=== PATIENT | female | born 1970 | race Caucasian/White ===

== ENCOUNTER 2019-08-24 08:41 | Outpatient (CLI) | payer BC ==
--- NOTE | 2019-08-24 11:29 | MRI ---
MRI LUMBAR SPINE WITH AND WITHOUT CONTRAST: 08/24/2019 HISTORY: Lumbar radiculopathy. Back pain. COMPARISON: None. TECHNIQUE: Multiplanar, multisequence MR imaging of the lumbar spine is obtained with and without contrast. FINDINGS: Incidental note is made of cholelithiasis. On the basis of five lumbar type vertebral bodies the conu s medullaris terminates at the L1 level. T12-L1: Intervertebral disk height and signal intensity within normal limits with no central canal or neural foraminal stenosis. L1-L2: Intervertebral disk height and signal intensity within normal limits with no significant centr al canal or neural foraminal stenosis. L2-L3: Intervertebral disk height and signal intensity within normal limits with no significant centr al canal or neural foraminal stenosis. L3-L4: There is disk space narrowing with disk desiccation and mild disk bulge. No associated central canal or neural foraminal stenosis. L4-L5: Prominent bilateral facet hypertrophy and hypertrophy of the ligamentum flavum. Fluid seen wit hin bilateral facet joints which can be seen on the basis of instability. Flexion/extension imaging o f the lumbar spine may be beneficial. Intervertebral disk height and signal intensity are within norm al limits. There is a rim enhancing lesion emanating from the medial aspect of the facet joint on the right at L 4-L5, most consistent with a prominent synovial cyst. This measures approximately 1 cm in AP dimensio n and 1.4 cm in craniocaudal dimension. There is severe associated central canal stenosis/right later al recess stenosis. There is mild right neural foraminal stenosis. L5-S1: There is mild bilateral facet hypertrophy. Intervertebral disk height and signal intensity wit hin normal limits with no significant central canal or neural foraminal stenosis. There are questiona ble L5 pars defects bilaterally. Assessment for pars defects is limited secondary to the degree of fa cet hypertrophy on this examination. The post contrast imaging demonstrates mild enhancement of the soft tissues adjacent to the right fac et joints at L4-L5 suggesting reactive inflammation. The post contrast imaging demonstrates no interv ertebral disk enhancement. Imaged retroperitoneal structures are grossly unremarkable. IMPRESSION: 1. Prominent bilateral facet disease at L4-L5 with a large right-sided synovial cyst causing severe c entral canal stenosis/right lateral recess stenosis at L4-L5. 2. Questionable bilateral L5 pars defects for which CT is suggested. 3. Cholelithiasis. POS: OFF
== END 2019-08-24 08:42 | disposition home or self-care (01) ==
LOC: SCSMRI 08:41
PROVIDERS: ATTEND Neurological Surgery
DX: M54.16 Radiculopathy, lumbar region (principal); M48.8X6 Other specified spondylopathies, lumbar region; M71.38 Other bursal cyst, other site; M48.061 Spinal stenosis, lumbar region without neurogenic claudication; K80.20 Calculus of gallbladder without cholecystitis without obstruction
CPT/HCPCS: 72158

== ENCOUNTER 2019-09-13 05:43 | Inpatient (IN) | payer BC ==
[2019-09-13] MEDS ORDERED: Fentanyl 100 MCG/2 ML VIAL ONE ×3 (06:28→08:58)
[2019-09-13] MEDS ORDERED: Sodium Chloride 0.9% 10 ML ONE (06:34)
[2019-09-13 06:56] LABS: #Basophils 0.1 thou/uL (0.0-0.2); #Eosinphils 0.2 thou/uL (0.0-0.7); #Lymphocytes 3.1 thou/uL (1.20-3.40); #Monocytes 0.5 thou/uL (0.11-0.59); #Neutrophils 6.1 thou/uL (1.40-6.50); %Basophils 0.7 % (0.0-1.0); %Eosinophils 1.8 % (0.0-10.0); %Lymphocytes 30.7 % (21.0-51.0); %Monocytes 5.4 % (0.0-10.0); %Neutrophils 61.4 % (42.0-75.0); Hemoglobin 12.1 g/dL (12.0-16.0); Mean Corpuscular HGB CONC 34.7 g/dL (32.0-36.0); Mean Corpuscular Hemoglobin 31.9 pg (27.0-31.0); Mean Platelet Volume 8.7 fL (7.4-10.4); Platelet Count 196 thou/uL (130-400); Red Blood Cell (RBC) Count 3.78 mill/uL (4.20-5.40)
[2019-09-13 07:47] LABS: Anion Gap 10 mmol/L (10-20); BUN (Urea Nitrogen) 14 mg/dL (7.0-18.7); Calc. Creatinine Clearance 94 mL/min (70-130); Calcium 8.9 mg/dL (7.8-10.44); Carbon Dioxide 24 mmol/L (22-29); Chloride 108 mmol/L (98-107); Estimated GFR-MDRD 83; Glucose 107 mg/dL (70-105); Potassium 4.3 mmol/L (3.5-5.1); Sodium 138 mmol/L (136-145)
--- NOTE | 2019-09-13 09:10 | OP ---
DATE OF PROCEDURE: 09/13/2019 [employer]EL CUTTER: Lizz Clark PA-C PROCEDURES PERFORMED: L4-L5 laminectomy, removal of synovial cyst right L4-L5, posterolateral arthrodesis, pedicle screw instrumentation, demineralized bone matrix, and local morselized autograft. DESCRIPTION OF PROCEDURE: The patient was brought to the operating room and intubated. She was rolled in a prone position on gel-filled chest rolls. An incision was made exposing L4-L5, and the level was confirmed by x-ray. We performed complete L5 and inferior L4 laminectomies, identified the right-sided synovial cyst and removed this without difficulty. A complete decompression bilaterally was achieved. Next, pedicle screws were placed at right L4 and right L5 using lateral fluoroscopic guidance and the position was confirmed by x-ray. The turner was secured between the screws, connected by nuts, which were final tightened. The wound was extensively irrigated. MAC hemostasis was secured. A combination of demineralized bone matrix and local morselized autograft was laid over the lamina and posterolateral surfaces for the purpose of arthrodesis. Vancomycin powder was applied, and the wound was then closed in anatomic layers. Job ID: [id number]
[2019-09-13] MEDS ORDERED: PROPOFOL 200 MG/20 ML VIAL ONE (09:54)
[2019-09-13] MEDS ORDERED: Glycopyrrolate 0.2 MG/ML 5 ML SYRINGE ONE (09:54)
[2019-09-13] MEDS ORDERED: Dexamethasone 20 MG/5 ML VIAL ONE (09:54)
[2019-09-13] MEDS ORDERED: Rocuronium Bromide 10 MG/ML (10ML VIAL) ONE (09:54)
[2019-09-13] MEDS ORDERED: Lidocaine 1% PF 5 ML VIAL ONE (09:54)
[2019-09-13] MEDS ORDERED: Ondansetron PF 4 MG/2 ML Vial ONE (09:54)
[2019-09-13] MEDS ORDERED: ePHEDrine/0.9% NaCl/PF SYRINGE 50 mg/10 ml ONE (09:54)
[2019-09-13] MEDS ORDERED: HYDROcodone/Acetaminophen 5/325 mg Tablet ONE (10:30)
--- NOTE | 2019-09-14 13:18 | DIS ---
DATE OF ADMISSION: 09/13/2019 DATE OF DISCHARGE: 09/13/2019 Patient is a 49-year-old female who was recently seen in our office for progressive back and leg pain and found to have significant stenosis and a synovial cyst at the right L4-L5 space. The patient underwent L4-L5 laminectomy and removal of a right-sided synovial cyst at L4-L5 on 09/13/2019. Following the surgery, she was transitioned to Day Stay where her pain was well controlled with p.o. medications, she was tolerating regular diet, and she was voiding appropriately. She was ambulating easily in the halls. She was discharged home the same day and will plan to follow up in 2 weeks with followup x-rays at that time. I have discussed home care precautions. The patient was provided with scripts for [place], Zanaflex, and Keflex. Job ID: [id number]
== END 2019-09-13 11:30 | disposition home or self-care (01) | DRG 460 ==
LOC: SURG A 05:43
PROVIDERS: ADMIT Neurological Surgery; ATTEND Neurological Surgery
PROC: 0SG0071 Fusion of Lumbar Vertebral Joint with Autologous Tissue Substitute, Posterior Approach, Posterior Column, Open Approach (ICD-10-PCS; principal; 2019-09-13)
PROC: 0SB00ZZ Excision of Lumbar Vertebral Joint, Open Approach (ICD-10-PCS; 2019-09-13)
PROC: 01NB0ZZ Release Lumbar Nerve, Open Approach (ICD-10-PCS; 2019-09-13)
DX: M48.062 Spinal stenosis, lumbar region with neurogenic claudication (principal); M54.16 Radiculopathy, lumbar region; M71.30 Other bursal cyst, unspecified site; M51.26 Other intervertebral disc displacement, lumbar region; M43.16 Spondylolisthesis, lumbar region; M71.38 Other bursal cyst, other site
CPT/HCPCS: 76000; 80048; 85025; 93005; 93010; C1713; C1768; J0690; J1100; J2001; J2405; J2704; J3010; J3370; J3490

== ENCOUNTER 2019-09-30 09:12 | Outpatient (CLI) | payer BC ==
--- NOTE | 2019-09-30 09:26 | RAD ---
TWO VIEWS OF THE LUMBAR SPINE: HISTORY: History of spondylolisthesis of L4-5. COMPARISON: Prior MRI the lumbar spine dated 08/24/2019. FINDINGS: Since the comparison examination there is been placement of right unilateral pedicle screws at L4 and L5. Very mild lucency surrounds the pedicle screws. There is an interconnecting turner. The screws project in the expected position. There is mild residual grade 1 anterolisthesis at L4-5. There is la minectomy change at L5. No acute fractures evident. Mild multilevel spondylosis is stable. IMPRESSION: Postoperative lumbar spine as above. Transcribed Date/Time: 09/30/2019 9:29 AM
--- NOTE | 2019-09-30 10:49 | CT ---
CT LUMBAR SPINE: 09/30/2019 HISTORY: Surgery two weeks ago, right hip pain. TECHNIQUE: Axial CT imaging at 3 mm intervals through the lumbar spine without contrast. Coronal and sagittal re formatted imaging obtained. FINDINGS: Evaluation of the contents of the thecal sac is limited on CT examination. This limits assessment for central canal and neural foraminal stenosis within the lumbar spine. No significant anterolisthesis or retrolisthesis is noted within the lumbar spine. Minimal anterolist hesis at L4-5 measures 2-3 mm. T12-L1: No osseous cause of significant central canal or neural foraminal stenosis. L1-2: No osseous cause of significant central canal or neural foraminal stenosis L2-3: No osseous cause of significant central canal or neural foraminal stenosis L3-4: No osseous cause of significant central canal or neural foraminal stenosis. L4-5: There is a pedicle screw on the right at L4 and L5 with a vertically oriented interlocking turner. No evidence for hardware failure. Bone graft material is noted posterior to the thecal sac and right facet joint at L4-5. Bilateral laminectomy changes at L4 and L5 noted. There is no osseous caus e of significant central canal or neural foraminal stenosis at the L4-5 level. L5-S1: Mild bilateral facet hypertrophy. No osseous cause of significant central canal or neural fora shanae stenosis. Nonspecific ill-defined increased density is noted within the posterior midline subcutaneous fat from the axial level of the L1 vertebral body through the axial level of the S1 vert ebral body. There is no acute fracture or evidence of dislocation appreciated. Imaged retroperitoneal structures demonstrate no acute findings. IMPRESSION: Postoperative changes within the lumbar spine as described above. No osseous cause of significant amina tral canal or neural foraminal stenosis. If symptoms persist, follow-up lumbar spine myelogram or MRI may be beneficial. Transcribed Date/Time: 09/30/2019 11:01 AM
== END 2019-09-30 09:13 | disposition home or self-care (01) ==
LOC: TBSIIMAG 09:12
PROVIDERS: ATTEND Neurological Surgery
DX: M43.16 Spondylolisthesis, lumbar region (principal); M48.062 Spinal stenosis, lumbar region with neurogenic claudication; Z98.890 Other specified postprocedural states
CPT/HCPCS: 72100; 72131